=== PATIENT | male | born 1965 | race Caucasian/White ===

== ENCOUNTER 2020-12-13 02:14 | Inpatient (IN) | payer BC ==
[2020-12-13] VITALS (17 sets, daily range): BP systolic 114–147; BP diastolic 67–104
[~2020-12-13] VITALS: Ht 175.3 cm; Wt 87.4 kg
[2020-12-13 03:08] LABS: BASOPHILS % (AUTO) 0.3 % (0-1); EOSINOPHILS # (AUTO) 0.2 X10'3 (0-0.9); EOSINOPHILS % (AUTO) 1.8 % (0-6); HEMATOCRIT 43.7 % (42.0-52.0); HEMOGLOBIN 15.1 g/dl (14.0-17.9); LYMPHOCYTES # (AUTO) 0.9 X10'3 (1.1-4.8); LYMPHOCYTES % (AUTO) 10.9 % (21-51); MEAN CORPUSCULAR HEMOGLOBIN 29.9 PG (27.0-31.0); MEAN CORPUSCULAR HGB CONC 34.5 g/dL (33.0-36.5); MEAN CORPUSCULAR VOLUME 86.8 FL (78-98); MEAN PLATELET VOLUME 7.5 FL (7.4-10.4); MONOCYTES # (AUTO) 0.5 X10'3 (0-0.9); MONOCYTES % (AUTO) 6.1 % (2-12); NEUTROPHILS # (AUTO) 6.9 X10'3 (1.8-7.7); NEUTROPHILS % (AUTO) 80.9 % (42-75); PLATELET COUNT 218 X10'3 (140-440); RED BLOOD COUNT 5.03 X10'6 (4.70-6.10); RED CELL DISTRIBUTION WIDTH 13.3 % (11.5-14.5); WHITE BLOOD COUNT 8.5 X10'3 (4.5-11.0)
[2020-12-13 03:13] LABS: ALANINE AMINOTRANSFERASE 25 U/L (12-78); ALBUMIN 3.9 G/DL (3.4-5.0); ALKALINE PHOSPHATASE 124 IU/L (46-116); ANION GAP 11 (8-16); ASPARTATE AMINO TRANSFERASE 20 U/L (10-37); BILIRUBIN,TOTAL 0.7 MG/DL (0.1-1.0); BLOOD UREA NITROGEN 22 MG/DL (7-18); BUN/CREATININE RATIO 14.8 (5.4-32.0); CALCIUM 9.2 MG/DL (8.5-10.1); CHLORIDE 106 MMOL/L (99-107); CREATININE 1.49 MG/DL (0.60-1.10); GLUCOSE 113 MG/DL (70-104); LIPASE 97 U/L (73-393); POTASSIUM 4.4 MMOL/L (3.5-5.1); SODIUM 144 MMOL/L (135-145); TOTAL CARBON DIOXIDE 26.8 MMOL/L (24-32); TOTAL PROTEIN 7.7 G/DL (6.4-8.2); eGFR 49 ML/MIN
[2020-12-13 04:43] LABS: CLARITY,URINE SLIGHTLY CLOUDY (Clear); COLOR,URINE YELLOW (Yellow); GLUCOSE, URINE NEGATIVE (Neg); KETONES,URINE 40 mg/dl (Neg); LEUKOCYTE ESTERASE ,URINE NEGATIVE (Neg); NITRITES, URINE NEGATIVE (Neg); OCCULT BLOOD,URINE LARGE (Neg); PH,URINE 5.5 (4.8-8.0); PROTEIN,URINE 100 mg/dl (Neg); UROBILINOGEN,URINE 0.2 E.U/dL (0.2-1.0)
[2020-12-13] MEDS ORDERED: ketorolac tromethamine 15mg/ml inj. IV ONE (04:45)
[2020-12-13] MEDS ORDERED: morphine 2 MG/ML inj. syringe IV PRN ×3 (04:45→12:10)
[2020-12-13] MEDS ORDERED: normal saline 1000ML IV soln IVB ONE (04:45)
[2020-12-13] MEDS ORDERED: pantoprazole 40 MG vial IV ONE (04:45)
[2020-12-13 04:49] LABS: ETHANOL < 0.010 GM/DL (0.0-0.010)
[2020-12-13 05:17] LABS: UA COLLECTION TYPE NON-SPECIFIED
[2020-12-13 05:22] LABS: WBC,URINE 0-4 /HPF (0-4)
[2020-12-13 05:23] LABS: BACTERIA,URINE NONE SEEN /HPF (Neg); SQUAMOUS EPITHELIAL CELL,UR NONE SEEN /LPF (FEW)
[2020-12-13] MEDS ORDERED: morphine 4 MG/ML inj SYRINge IV ONE (05:40)
[2020-12-13] MEDS ORDERED: piperacillin/tazo 3.375gm/50ml 50 ML IV ONE (05:40)
[2020-12-13] MEDS ORDERED: ondansetron/PF 4mg/2ml inj IV ONE (05:40)
[2020-12-13] MEDS ORDERED: magnesium hydroxide 30ml (MOM) UD suspension PO PRN (05:50)
[2020-12-13] MEDS ORDERED: diphenhydrAMINE 50 mg/ml inj IV PRN (05:50)
[2020-12-13] MEDS ORDERED: HYDROmorphone inj. 0.5 MG/0.5 ML DISP.SYRIN IV PRN (05:50)
[2020-12-13] MEDS ORDERED: HYDROcodone/acetaminophen 10/325mg tab PO PRN (05:50)
[2020-12-13] MEDS ORDERED: acetaminophen 325mg tablet PO PRN ×2 (05:50)
[2020-12-13] MEDS ORDERED: mag hydrox/Alum hydrox/simeth 30ml oral suspension PO PRN (05:50)
[2020-12-13] MEDS ORDERED: acetaminophen 650mg rectal suppository RC PRN (05:50)
[2020-12-13] MEDS ORDERED: ondansetron 4mg rapidly disintigrating tab PO PRN (05:50)
[2020-12-13] MEDS ORDERED: HYDROcodone/acetaminophen 5mg/325mg tablet PO PRN (05:50)
[2020-12-13] MEDS ORDERED: ondansetron/PF 4mg/2ml inj IV PRN ×2 (05:50→12:10)
[2020-12-13] MEDS ORDERED: diphenhydrAMINE 25mg capsule PO PRN (05:50)
[2020-12-13] MEDS ORDERED: bisacodyl 10mg suppository rectal RC PRN (05:50)
[2020-12-13] MEDS ORDERED: ondansetron/PF 4mg/2ml inj ONE ×2 (05:55→13:17)
[2020-12-13] MEDS: piperacillin/tazo 3.375gm/50ml 50 ML IV ONE ×2 (05:55→08:41)
[2020-12-13] MEDS: morphine 2 MG/ML inj. syringe IV PRN (06:07)
[2020-12-13] MEDS ORDERED: PSYL0.5244 PO (07:15)
[2020-12-13] MEDS: docusate sod 100mg capsule PO SCH ×2 (08:00→20:00)
[2020-12-13] MEDS: pantoprazole 40 MG vial IV SCH (08:39)
[2020-12-13] MEDS: dextrose 5%-1/2 normal saline 1,000 ML IV SCH ×2 (08:45→20:00)
[2020-12-13 11:20] LABS: URINE AMPHETAMINE SCREEN NEGATIVE (Neg); URINE BARBITUATE SCREEN NEGATIVE (Neg); URINE BENZODIAZEPINES SCREEN NEGATIVE (Neg); URINE CANNABINOID SCREEN NEGATIVE (Neg); URINE COCAINE SCREEN NEGATIVE (Neg); URINE METHADONE SCREEN NEGATIVE (Neg); URINE OPIATE SCREEN NEGATIVE (Neg); URINE PHENCYCLIDINE SCREEN NEGATIVE (Neg)
[2020-12-13] MEDS ORDERED: ringers solution, lacted 1,000 ML IV SCH (12:10)
[2020-12-13] MEDS ORDERED: fentaNYL/PF 50MCG/1 ML 2ML syringe IV PRN ×2 (12:10)
[2020-12-13] MEDS ORDERED: labetalol 20mg/4ml (5mg/ml) syringe IV PRN (12:10)
[2020-12-13] MEDS ORDERED: hydrALAZINE 20mg/ml inj. IV PRN (12:10)
[2020-12-13] MEDS ORDERED: morphine 4 MG/ML inj SYRINge IV PRN (12:10)
--- NOTE | 2020-12-13 12:12 | NUR ---
TC TO RECOVERY ROOM NURSE AND ALL QUESTIONS WERE ANSWERED. PATIENT HAS PATENT IV WITH NS AT 100 ML/HR. PATIENT HAS BEEN NPO.
[2020-12-13] MEDS ORDERED: BUPIVAcaine/PF 2.5 mg/ml (0.25%) 30ml vial ONE (12:43)
[2020-12-13 13:01] LABS: PARTIAL THROMBOPLASTIN TIME 31 SECONDS (22-32)
[2020-12-13] MEDS ORDERED: sevoflurane 250ml liquid IH ONE (13:02)
[2020-12-13] MEDS ORDERED: neostigmine methylsulfate 1 MG/ML 10ml vial ONE (13:02)
[2020-12-13] MEDS ORDERED: dexamethasone sod phosphate 10mg/ml inj ONE (13:02)
[2020-12-13] MEDS ORDERED: rocuronium 10mg/ml inj IV ONE ×2 (13:02→13:13)
[2020-12-13] MEDS ORDERED: glycopyrrolate 0.2mg/ml inj ONE (13:02)
[2020-12-13] MEDS ORDERED: fentaNYL/PF 50MCG/1 ML 2ML syringe ONE ×2 (13:10)
[2020-12-13] MEDS ORDERED: midazolam 1 mg/ML 2ml injection ONE (13:11)
[2020-12-13] MEDS ORDERED: propofol inj 20 ML IV ONE (13:13)
[2020-12-13] MEDS ORDERED: LIDOcaine 1%/PF 5ML 10 MG/ML VIAL ONE (13:13)
[2020-12-13] MEDS ORDERED: ceFOXitin 1000 MG inj ONE ×2 (13:33)
[2020-12-13] MEDS ORDERED: labetalol 20mg/4ml (5mg/ml) syringe IV ONE (13:51)
[2020-12-13] MEDS: piperacillin/tazo 3.375gm/50ml 50 ML IV SCH ×2 (14:00→22:27)
[2020-12-13] MEDS ORDERED: morphine 10mg/ml inj. ONE (14:00)
[2020-12-13] MEDS ORDERED: hydrALAZINE 20mg/ml inj. IV ONE (14:03)
[2020-12-13] MEDS ORDERED: HYDROcodone/acetaminophen 10/325mg tab PO ONE (14:30)
--- NOTE | 2020-12-13 14:35 | NUR ---
Received from OR via BED IN STABLE CONDITION , accompanied by Anesthesiologist and HADOOP INFRASTRUCTURE ARCHITECT report given by HADOOP INFRASTRUCTURE ARCHITECT AND Anesthesiolgist. Addendum: 12/13/20 at 1457 by Susie Calderon RN Amended: Links added.
[2020-12-13] MEDS ORDERED: proCHLORperazine 10 MG/2 ml inj IV ONE (14:40)
--- NOTE | 2020-12-13 15:33 | NUR ---
PATIENT TRANSFERRED TO ROOM 345 IN STABLE CONDITION AFTER REPORT GIVEN TO NOELLE. PATIENT TRANSPORTED VIA BED WITH ION X2. Addendum: 12/13/20 at 1601 by Susie Calderon RN Amended: Links added.
--- NOTE | 2020-12-13 16:30 | NUR ---
Pt arrived to surgical floor via hospital bed. at bedside. Post op VS started. Pt rates pain 05/29. Will continue to monitor.
--- NOTE | 2020-12-13 18:25 | NUR ---
Problems reprioritized. Patient report given, questions answered & plan of care reviewed with ION Jay.
--- NOTE | 2020-12-13 18:45 | NUR ---
Patient in room [facility]. I have received report from Michelle LEMON and had the opportunity to ask questions and assume patient care.
[2020-12-13] MEDS: lactobacillus rhamnosus 10,000 MMU CELLS/CAPSULE PO SCH (20:00)
[2020-12-13] MEDS ORDERED: temazepam 15mg capsule PO PRN (21:00)
[2020-12-14] VITALS: BP 110/69
[2020-12-14] MEDS: morphine 2 MG/ML inj. syringe IV PRN ×2 (01:31→07:44)
[2020-12-14] MEDS: dextrose 5%-1/2 normal saline 1,000 ML IV SCH ×3 (01:35→21:50)
[2020-12-14] MEDS: piperacillin/tazo 3.375gm/50ml 50 ML IV SCH ×3 (05:35→22:46)
[2020-12-14 06:07] LABS: ALANINE AMINOTRANSFERASE 45 U/L (12-78); ALBUMIN 2.9 G/DL (3.4-5.0); ALBUMIN/GLOBULIN RATIO 0.8 (1.1-1.5); ALKALINE PHOSPHATASE 96 IU/L (46-116); ANION GAP 6 (8-16); ASPARTATE AMINO TRANSFERASE 46 U/L (10-37); BILIRUBIN,TOTAL 0.9 MG/DL (0.1-1.0); BLOOD UREA NITROGEN 19 MG/DL (7-18); BUN/CREATININE RATIO 13.1 (5.4-32.0); CALCIUM 8.2 MG/DL (8.5-10.1); CHLORIDE 105 MMOL/L (99-107); CREATININE 1.45 MG/DL (0.60-1.10); GLUCOSE 139 MG/DL (70-104); POTASSIUM 4.3 MMOL/L (3.5-5.1); SODIUM 140 MMOL/L (135-145); TOTAL CARBON DIOXIDE 28.9 MMOL/L (24-32); TOTAL PROTEIN 6.4 G/DL (6.4-8.2); eGFR 51 ML/MIN
--- NOTE | 2020-12-14 06:30 | NUR ---
Patient in room [facility]. I have received report from ION Jay and had the opportunity to ask questions and assume patient care.
[2020-12-14 06:33] LABS: BASOPHILS % (AUTO) 0.1 % (0-1); EOSINOPHILS % (AUTO) 0.4 % (0-6); HEMATOCRIT 39.3 % (42.0-52.0); HEMOGLOBIN 13.2 g/dl (14.0-17.9); LYMPHOCYTES # (AUTO) 1.2 X10'3 (1.1-4.8); LYMPHOCYTES % (AUTO) 10.2 % (21-51); MEAN CORPUSCULAR HEMOGLOBIN 29.2 PG (27.0-31.0); MEAN CORPUSCULAR HGB CONC 33.7 g/dL (33.0-36.5); MEAN CORPUSCULAR VOLUME 86.5 FL (78-98); MEAN PLATELET VOLUME 7.5 FL (7.4-10.4); MONOCYTES # (AUTO) 0.9 X10'3 (0-0.9); NEUTROPHILS # (AUTO) 9.5 X10'3 (1.8-7.7); NEUTROPHILS % (AUTO) 81.3 % (42-75); PLATELET COUNT 187 X10'3 (140-440); RED BLOOD COUNT 4.54 X10'6 (4.70-6.10); RED CELL DISTRIBUTION WIDTH 13.4 % (11.5-14.5); WHITE BLOOD COUNT 11.7 X10'3 (4.5-11.0)
--- NOTE | 2020-12-14 06:34 | NUR ---
Problems reprioritized. Patient report given, questions answered & plan of care reviewed with Alicia LEMON.
[2020-12-14 07:00] VITALS: BP 120/79
[2020-12-14 07:39] VITALS: BP 120/79
[2020-12-14] MEDS: pantoprazole 40 MG vial IV SCH (07:46)
[2020-12-14] MEDS: docusate sod 100mg capsule PO SCH ×2 (07:46→20:07)
[2020-12-14] MEDS: lactobacillus rhamnosus 10,000 MMU CELLS/CAPSULE PO SCH ×2 (07:46→20:07)
[2020-12-14 11:00] VITALS: BP 112/69
[2020-12-14 18:00] VITALS: BP 113/77
--- NOTE | 2020-12-14 18:00 | NUR ---
Patient in room [facility]. I have received report from Alicia LEMON and had the opportunity to ask questions and assume patient care.
--- NOTE | 2020-12-14 18:30 | NUR ---
Problems reprioritized. Patient report given, questions answered & plan of care reviewed with ION Doss.
[2020-12-15 00:12] VITALS: BP 138/81
[2020-12-15] MEDS: dextrose 5%-1/2 normal saline 1,000 ML IV SCH (02:47)
[2020-12-15] MEDS: piperacillin/tazo 3.375gm/50ml 50 ML IV SCH (05:18)
[2020-12-15 06:00] LABS: BASOPHILS % (AUTO) 0.1 % (0-1); EOSINOPHILS # (AUTO) 0.2 X10'3 (0-0.9); EOSINOPHILS % (AUTO) 2.6 % (0-6); HEMATOCRIT 37.6 % (42.0-52.0); HEMOGLOBIN 12.9 g/dl (14.0-17.9); LYMPHOCYTES # (AUTO) 1.2 X10'3 (1.1-4.8); LYMPHOCYTES % (AUTO) 15.3 % (21-51); MEAN CORPUSCULAR HGB CONC 34.3 g/dL (33.0-36.5); MEAN CORPUSCULAR VOLUME 87.6 FL (78-98); MEAN PLATELET VOLUME 7.7 FL (7.4-10.4); MONOCYTES # (AUTO) 0.6 X10'3 (0-0.9); MONOCYTES % (AUTO) 7.7 % (2-12); NEUTROPHILS # (AUTO) 5.8 X10'3 (1.8-7.7); NEUTROPHILS % (AUTO) 74.3 % (42-75); PLATELET COUNT 163 X10'3 (140-440); RED CELL DISTRIBUTION WIDTH 13.7 % (11.5-14.5); WHITE BLOOD COUNT 7.8 X10'3 (4.5-11.0)
[2020-12-15 06:10] LABS: ALANINE AMINOTRANSFERASE 45 U/L (12-78); ALBUMIN 2.7 G/DL (3.4-5.0); ALBUMIN/GLOBULIN RATIO 0.8 (1.1-1.5); ALKALINE PHOSPHATASE 84 IU/L (46-116); ANION GAP 4 (8-16); ASPARTATE AMINO TRANSFERASE 33 U/L (10-37); BILIRUBIN,TOTAL 0.8 MG/DL (0.1-1.0); BLOOD UREA NITROGEN 13 MG/DL (7-18); BUN/CREATININE RATIO 10.3 (5.4-32.0); CHLORIDE 106 MMOL/L (99-107); CREATININE 1.26 MG/DL (0.60-1.10); GLUCOSE 113 MG/DL (70-104); POTASSIUM 3.9 MMOL/L (3.5-5.1); SODIUM 139 MMOL/L (135-145); eGFR 60 ML/MIN
--- NOTE | 2020-12-15 06:44 | NUR ---
Problems reprioritized. Patient report given, questions answered & plan of care reviewed with Tonia LEMON.
[2020-12-15 07:00] VITALS: BP 163/93
[2020-12-15] MEDS ORDERED: pantoprazole 40mg Tablet.DR PO SCH (08:00)
[2020-12-15] MEDS: lactobacillus rhamnosus 10,000 MMU CELLS/CAPSULE PO SCH (08:46)
[2020-12-15] MEDS: docusate sod 100mg capsule PO SCH (08:46)
[2020-12-15] MEDS ORDERED: HYDR-3965 PO (10:43)
[2020-12-15 11:00] VITALS: BP 156/99
--- NOTE | 2020-12-15 11:08 | NUR ---
SHAWNA w/ Serous-sang drainage. No mikayla blood or bile-like drainage seen. Order to DC drain received from Dr Sim.
[2020-12-15] MEDS ORDERED: AMOX-580 PO (11:58)
--- NOTE | 2020-12-15 12:08 | NUR ---
riki drain with 45 cc of serous drainage pulled out , patient tolerated it well. gauze dressing applied on site.
--- NOTE | 2020-12-15 13:37 | NUR ---
PIV on right FA discontinued, discharge instructions given to and patient both verbalized understanding. Discharged patient home with , ambulatory,condition stable.
== END 2020-12-15 13:35 | disposition home or self-care (01) | DRG 418 ==
LOC: ER 02:15 → ED HOLD 05:48 → SUR 3N 16:30
PROVIDERS: ADMIT Family Medicine; ATTEND Internal Medicine
PROC: 0FT44ZZ Resection of Gallbladder, Percutaneous Endoscopic Approach (ICD-10-PCS; principal; 2020-12-13 13:02)
DX: K80.00 Calculus of gallbladder with acute cholecystitis without obstruction (principal); N17.9 Acute kidney failure, unspecified; Z20.822 Contact with and (suspected) exposure to COVID-19; E86.0 Dehydration; I12.9 Hypertensive chronic kidney disease with stage 1 through stage 4 chronic kidney disease, or unspecified chronic kidney disease; N18.30 Chronic kidney disease, stage 3 unspecified
CPT/HCPCS: 96374; 96375; 99285; Z7506; Z7508; 36415; 71045; 74018; 74176; 76700; 80053; 80305; 80320; 81001; 83605; 83690; 83735; 84145; 84484; 85025; 85610; 85730; 87040; 87081; 87635; 93005; A4215; A4618; A7000; C9113; G0378; J0360; J0694; J0780; J1100; J1885; J2250; J2270; J2405; J2543; J2704; J2710; J3010; J3490; J7030; J7120